=== PATIENT | male | born 1945 ===

== ENCOUNTER 2021-07-28 06:05 | Day surgery (SDC) | payer OTHER ==
[~2021-07-28 06:05] MED LIST: ACID REDUCER20 M1 PO; CLARITIN5 MG PO; FLONASE16 GM
[2021-07-28] MEDS ORDERED: ULTRACET PO (15:57)
[2021-07-28] MEDS ORDERED: AMOX1TAB5 PO (15:58)
[2021-07-28] MEDS ORDERED: PROTONIX40 MG PO (15:58)
== END 2021-07-28 21:40 | disposition home or self-care (01) ==
LOC: CIR.AMB 06:05
PROVIDERS: ATTEND Surgery
DX: L72.0 Epidermal cyst (principal); Z91.013 Allergy to seafood; J45.909 Unspecified asthma, uncomplicated; M19.90 Unspecified osteoarthritis, unspecified site; K21.9 Gastro-esophageal reflux disease without esophagitis